=== PATIENT | female | born 1970 | race Caucasian/White ===

== ENCOUNTER → 2016-05-24 | Outpatient (CLI) | payer MEDICARE, OTHER ==
[2016-05-24 12:51] LABS: VALPROIC ACID 13.3 ug/mL (50.0-120.0)
[2016-05-25 10:00] LABS: VITAMIN D 25-HYDROXY 67.9 ng/mL (30.0-100.0)
[2016-05-26 07:14] LABS: LEVETIRACETAM (KEPPRA) 28.3 ug/mL (10.0-40.0)
== END ==
LOC: OD 11:06
PROVIDERS: ATTEND Specialist
DX: R56.9 Unspecified convulsions (principal); E55.9 Vitamin D deficiency, unspecified; E53.8 Deficiency of other specified B group vitamins
CPT/HCPCS: 36415; 80164; 80177; 80184; 82306; 82607